=== PATIENT | female | born 1985 | race Caucasian/White ===

== ENCOUNTER → 2018-12-16 | Day surgery (SDC) | payer OTHER ==
[~2018-12-16] MED LIST: BUPR300T3 PO; DICY20TA3 PO; HYDROmorphone 2 MG/ML VIAL IV PRN; IV RINGERS,LACTATED 1000ML 1,000 ML IV SCH; LIDOCAINE 1% PF 2 ML VIAL. ID PRN; METF500T16 PO; MORPHINE SULFATE 4 MG/ML VIAL. IV PRN; OMEP40CA5 PO; ONDANSETRON PF 4 MG/2 ML VIAL. IV PRN; PROCHLORPERAZINE 10 MG/2 ML VIAL. IV PRN; PROPOFOL 40 ML IV ONE; SPIR25TA5 PO; fentaNYL PF VIAL 100 MCG/2 ML VIAL IV PRN
[2018-12-16 12:39] LABS: U PREG PATIENT NEGATIVE (NEG)
[2018-12-16 14:07] VITALS: BP 125/82
--- NOTE | 2018-12-17 14:09 | PATHOLOGY ---
[facility] Accession Number: [id number] . 01 Material submitted: . PART A: DUODENUM BIOPSY PART B: RANDOM COLON BIOPSY . 01 Clinical history: . Pre-OP DX: Diarrhea Post-OP DX: Rule out celiac disease . 02 Diagnosis: A. Small bowel, duodenum, biopsy: - Mild chronic inflammation. - Normal villous architecture. . B. Colon, random biopsies: - Multiple fragments of colonic mucosa with no significant histopathologic diagnosis. (SKM:[facility] 12/17/2018) QTP/12/17/2018 . 02 Electronically signed: . Everton Mota MD, Pathologist NPI- [id number] . 01 Gross description: . A. Received in formalin labeled "Frashier, Kathy, duodenum," are multiple segments of santos soft tissue measuring 1.7 x 0.6 x 0.1 cm in aggregate dimensions. The specimen is filtered and entirely submitted in cassette A1. . B. Received in formalin labeled "Frashier, Kathy, random colon," are multiple segments of santos soft tissue measuring 2.3 x 0.6 x 0.1 cm in aggregate dimensions. The specimen is filtered and entirely submitted in cassette B1. (TSD; 12/16/2018) TOB/TOB . 02 Pathologist provided ICD-10: K29.80, R19.7 . 02 CPT . 152043, 511234 Specimen Comment: A courtesy copy of this report has been sent to Specimen Comment: [phone], . Specimen Comment: Report sent to / DR GALVAN Performed at: [address], [place] [id number] MD Truong Bee MD Phone: [phone] Performed at: [address] [id number] MD Dieter Nur MD Phone: [phone]
== END | disposition home or self-care (01) ==
LOC: ENDOS 11:50
PROVIDERS: ATTEND Internal Medicine Gastroenterology
DX: K57.30 Diverticulosis of large intestine without perforation or abscess without bleeding (principal); K64.0 First degree hemorrhoids; K29.80 Duodenitis without bleeding; K31.89 Other diseases of stomach and duodenum; J45.909 Unspecified asthma, uncomplicated; F41.9 Anxiety disorder, unspecified; F32.9 Major depressive disorder, single episode, unspecified; E28.2 Polycystic ovarian syndrome; K58.9 Irritable bowel syndrome, unspecified; Z82.3 Family history of stroke; Z82.49 Family history of ischemic heart disease and other diseases of the circulatory system; Z72.89 Other problems related to lifestyle; Z72.0 Tobacco use; Z79.899 Other long term (current) drug therapy; Z79.84 Long term (current) use of oral hypoglycemic drugs; Z98.890 Other specified postprocedural states
CPT/HCPCS: 43239; 45380; 81025; 88305; J2704